=== PATIENT | male | born 1970 | race Caucasian/White ===

== ENCOUNTER 2018-03-06 14:54 | Inpatient (IN) | payer OTHER ==
[~2018-03-06] VITALS: Ht 190.5 cm; Wt 131.5 kg
[2018-03-06 16:26] LABS: ABSOLUTE BASOPHIL COUNT 0 /CUMM (0.0-0.2); ABSOLUTE EOSINOPHIL COUNT 0 /CUMM (0.0-0.7); ABSOLUTE GRANULOCYTE CT 5.5 /CUMM (1.4-6.5); ABSOLUTE LYMPH COUNT 0.8 /CUMM (1.2-3.4); ABSOLUTE MONOCYTE COUNT 0.1 /CUMM (0.10-0.60); BASOPHIL % 0.3 % (0.0-2.0); EOSINOPHIL % 0.3 % (0-5); MEAN CORPUSCULAR HGB 29.3 PG (27.0-31.0); MEAN CORPUSCULAR HGB CONC 33.9 G/DL (33.0-37.0); MEAN CORPUSCULAR VOLUME 86.4 FL (80.0-94.0); PLATELET COUNT 159 /CUMM (130-400); RBC DISTRIBUTION WIDTH 13.7 % (11.5-14.5); RED BLOOD CELL CT 5.09 /CUMM (4.70-6.10); WHITE BLOOD CELL COUNT 6.5 /CUMM (4.8-10.8)
[2018-03-06 16:28] LABS: GRANULOCYTE % 84.9 % (42.2-75.2)
--- NOTE | 2018-03-06 19:06 | ED SKIN/ALLERGY COMPLAINT ---
History of Present Illness General Chief Complaint: Skin Rash/ Abcess Stated Complaint: SIB ROSA MARIA. BART FOR CELLULITIS Source: patient Exam Limitations: no limitations Vital Signs & Intake/Output Vital Signs & Intake/Output Vital Signs Date Time Temp Pulse Resp B/P B/P Pulse O2 O2 Flow FiO2 Mean Ox Delivery Rate 03/06 1516 97.9 78 17 128/86 97 Room Air Allergies Coded Allergies: cat dander (UNKNOWN REACTION TO CATS 03/06/18) lactose (INTOLERANT 03/06/18) Triage Note: PT REFERRED TO ED BY MD ARRIAGA FOR WORSENING LLE CELLULITIS, STARTED ON PO AUGMENTIN YESTERDAY. STATES REDNESS HAS EXTENDED BEYOND THE LINES DRAWN AT OFFICE YESTERDAY Triage Nurses Notes Reviewed? yes Onset: Abrupt Duration: day(s): Timing: recent history Severity: mild, moderate Location: extremities No Modifying Factors: none HPI: A 47-year-old male comes into the emergency room for further evaluation of redness to left lower leg that is spreading. Patient reports symptoms started a few days ago and has spread significantly since. She's been on Augmentin for the last 24 hours. He denies any fever chills vomiting. Nothing seems to make the symptoms better. Comes in for further evaluation. (Jameel BAEZ,Tom) Reconcile Medications Allopurinol 300 MG TABLET 1 TAB PO DAILY GOUT (Reported) Amoxicillin/Clavulanate Potass (Amox-Clav 875-125 MG Tablet) 875 MG-125 MG TABLET 1 TAB PO BID ABX (Reported) Aspirin (Aspirin*) 81 MG TAB.CHEW 1 TAB PO DAILY HEART/BLOOD (Reported) Atenolol 50 MG TABLET 1 TAB PO DAILY BP (Reported) Cholecalciferol (Vitamin D3) (Vitamin D) (Unknown Strength) TABLET (Unknown Dose) PO DAILY SUPPLEMENT (Reported) Fenofibrate Nanocrystallized (Fenofibrate) 48 MG TABLET 1 TAB PO DAILY CHOLESTEROL/TRIGLYCERIDES (Reported) Multiple Vitamin (Multivitamins) 1 EACH TABLET 1 TAB PO DAILY SUPPLEMENT ( Reported) Omeprazole 20 MG CAPSULE. 1 CAP PO MONWEDFRISAT GI (Reported) (Tommy WILL,Remberto) Past History Travel History Traveled to [place] past 21 day No Medical History Any Pertinent Medical History? none History of MRSA: No History of VRE: No History of CDIFF: No Tetanus Vaccine: 08/29/12 Surgical History Surgical History: non-contributory Psychosocial History Who do you live with Spouse Services at Home None What is your primary language Libyan Tobacco Use: Never used ETOH Use: denies use Family History Family History, If Any: No Known Family History. Hx Contributory? No (Tom Russ) Review of Systems Review of Systems Constitutional: Reports: no symptoms. EENTM: Reports: no symptoms. Respiratory: Reports: no symptoms. Cardiovascular: Reports: no symptoms. GI: Reports: no symptoms. Genitourinary: Reports: no symptoms. Musculoskeletal: Reports: no symptoms. Skin: Reports: see HPI. Neurological/Psychological: Reports: no symptoms. Hematologic/Endocrine: Reports: no symptoms. Immunologic/Allergic: Reports: no symptoms. All Other Systems: Reviewed and Negative (Tom Russ) Physical Exam Physical Exam General Appearance: well developed/nourished, mild distress Head: atraumatic Eyes: Bilateral: normal appearance. Ears, Nose, Throat: normal ENT inspection, hearing grossly normal Neck: normal inspection Respiratory: no respiratory distress Back: normal inspection Extremities: erythema to left lower leg, below the knee extending down to the foot, well demarcated borders, warm to touch, no purulent drainage, Neurologic/Psych: awake, alert, oriented x 3, normal mood/affect Skin: intact, rash Skin Problem Location: lower extremities (Tom Russ) Progress Differential Diagnosis: abscess/cellulitis, allergic reaction, anaphylaxis, angioedema, asthma, contact dermatitis Plan of Care: Orders Procedure Date/time Status Regular Diet 03/07 B Active Patient Data 03/06 1926 Active OXYGEN SETUP (GEN) 03/06 1907 Active Saline Lock 03/06 1907 Active Admit to inpatient 03/06 1907 Active Vital Signs 03/06 1907 Active Activity/Ambulation 03/06 1907 Active Code Status 03/06 1907 Active BLOOD CULTURE 03/06 1515 Active WESTERGREN SED RATE 03/06 1515 Complete C-REACTIVE PROTEIN 03/06 1515 Complete COMPREHENSIVE METABOLIC PANEL 03/06 1515 Complete CBC WITHOUT DIFFERENTIAL 03/06 1515 Complete Laboratory Tests 03/06/18 1603: Anion Gap 14, Estimated GFR > 60, BUN/Creatinine Ratio 12.0, Glucose 117 H, Calcium 9.2, Total Bilirubin 0.7, AST 232 H, ALT 267 H, Alkaline Phosphatase 75, C-Reactive Prot, Quant 7.7 H, Total Protein 7.6, Albumin 4.4, Globulin 3.2, Albumin/Globulin Ratio 1.4, CBC w Diff NO MAN DIFF REQ, RBC 5.09, MCV 86.4, MCH 29.3, MCHC 33.9, RDW 13.7, MPV 8.0, Gran % 84.9 H, Lymphocytes % 12.5 L, Monocytes % 2.0, Eosinophils % 0.3, Basophils % 0.3, Absolute Granulocytes 5.5, Absolute Lymphocytes 0.8 L, Absolute Monocytes 0.1, Absolute Eosinophils 0, Absolute Basophils 0, ESR Westergren 22 H Microbiology 03/06 1632 BLOOD: Blood Culture - RECD 03/06 1603 BLOOD: Blood Culture - RECD (Tom Russ) Departure Departure Disposition: STILL A PATIENT Condition: Stable Clinical Impression Primary Impression: Cellulitis of left lower leg Referrals: Roxy WILL,Kaelyn Brumfield (PCP/Family) Departure Forms: Customer Survey General Discharge Information Admission Note Spoke With: Giacomo Dietrich MD Documentation of Exam: Documentation of any treatments & extenuating circumstances including Concerns Regarding Discharge (functional status, medication knowledge or non-compliance, living conditions, etc.) that warrant an admission rather than observation: Patient will require IV antibiotics. Failed outpatient treatment with oral antibiotics. Cellulitis spreading. Medically not safe for discharge. (Tom Russ) PA/KEELER POLYGRAPH OPERATOR Co-Sign Statement Statement: ED Attending supervision documentation- x I saw and evaluated the patient. I have also reviewed all the pertinent lab results and diagnostic results. I agree with the findings and the plan of care as documented in the PA's/KEELER POLYGRAPH OPERATOR's documentation. Worsening LLE cellulitis despite augmentin [] I have reviewed the ED Record and agree with the PA's/KEELER POLYGRAPH OPERATOR's documentation. [] Additions or exceptions (if any) to the PAs/KEELER POLYGRAPH OPERATOR's note and plan are summarized below: [] (Remberto Sanders MD)
[2018-03-06] MEDS ORDERED: AMOX-CLAV 875-1 EACH PO (19:24)
[2018-03-06] MEDS ORDERED: OMEPRAZOLE20 M2 PO (19:25)
[2018-03-06] MEDS ORDERED: FENOFIBRATE48 M1 PO (19:25)
[2018-03-06] MEDS ORDERED: ASPIRIN81 M4 PO (19:25)
[2018-03-06] MEDS ORDERED: ATENOLOL50 M1 PO (19:25)
[2018-03-06] MEDS ORDERED: ALLOPURINOL300 M1 PO (19:25)
[2018-03-06] MEDS ORDERED: MULTIVITAMINS1 EAC9 PO (19:26)
[2018-03-06] MEDS ORDERED: VITAMIN D1000 UNIT PO (19:26)
--- NOTE | 2018-03-06 20:09 | History & Physical ---
Trina Cordon 03/06/182007: General Information and HPI MD Statement: I have seen and personally examined SUSAN JESUS and documented this H&P. The patient is a 47 year old M who presented with a patient stated chief complaint of []. Source of Information: patient History of Present Illness: 47 yo gentleman with PMH significant for gout, psoriatic arthritis and hypertension presents to the ED with worsening redness amd swelling in his left leg. The symptoms started on Sunday when he was driving home from work and noticed his left leg tensing up. He started having chills Sunday night but did not document any fever. He was being treated as an outpatient by and came in today with the pain and the redness spreading down his foot as well as up this thigh. The patient went camping a week ago, although he cannot recall any significant trauma or tickbites during that trip. His reports that he can recall that he bumped his leg sometime last week but they did not notice any cracks or cuts. He had a similar episode around last year for which he was admitted to the hospital and another episode during the Winter which resolved with oral antibiotics. The patient complains of a headache since Sunday which has been gradually improving and an intermittent sharp pain in his left ear. Allergies/Medications Allergies: Coded Allergies: cat dander (UNKNOWN REACTION TO CATS 03/06/18) lactose (INTOLERANT 03/06/18) Home Med list Allopurinol 300 MG TABLET 1 TAB PO DAILY GOUT (Reported) Amoxicillin/Clavulanate Potass (Amox-Clav 875-125 MG Tablet) 875 MG-125 MG TABLET 1 TAB PO BID ABX (Reported) Aspirin (Aspirin*) 81 MG TAB.CHEW 1 TAB PO DAILY HEART/BLOOD (Reported) Atenolol 50 MG TABLET 1 TAB PO DAILY BP (Reported) Cholecalciferol (Vitamin D3) (Vitamin D) (Unknown Strength) TABLET (Unknown Dose) PO DAILY SUPPLEMENT (Reported) Fenofibrate Nanocrystallized (Fenofibrate) 48 MG TABLET 1 TAB PO DAILY CHOLESTEROL/TRIGLYCERIDES (Reported) Multiple Vitamin (Multivitamins) 1 EACH TABLET 1 TAB PO DAILY SUPPLEMENT ( Reported) Omeprazole 20 MG CAPSULE. 1 CAP PO MONWEDFRISAT GI (Reported) Past History Travel History Traveled to [place] past 21 day No Medical History Musculoskeletal: gout, psoariatic arthritis History of MRSA: No History of VRE: No History of CDIFF: No Tetanus Vaccine: 08/29/12 Surgical History Surgical History: non-contributory Past Family/Social History Family History Relations & Conditions if any No Known Family History. Psychosocial History Services at Home: None ETOH Use: denies use Review of Systems Review of Systems Constitutional: Reports: chills. Denies: fever, malaise, weakness. EENTM: Reports: no symptoms, ear pain. Cardiovascular: Reports: edema. Denies: chest pain. Respiratory: Reports: no symptoms. GI: Reports: no symptoms. Genitourinary: Reports: no symptoms. Musculoskeletal: Reports: gout. Skin: Reports: erythema, lesions, lymphangitis. Neurological/Psychological: Reports: no symptoms. Hematologic/Endocrine: Reports: no symptoms. Exam & Diagnostic Data Last 24 Hrs of Vital Signs/I&O Vital Signs Date Time Temp Pulse Resp B/P B/P Pulse O2 O2 Flow FiO2 Mean Ox Delivery Rate 03/06 2137 99.2 63 18 116/70 96 03/06 2034 98.6 63 18 116/60 96 03/06 1516 97.9 78 17 128/86 97 Room Air Intake & Output 03/06 1600 03/06 0800 03/06 0000 Intake Total Output Total Balance Patient 290 lb Weight Weight Reported by Patient Measurement Method Physical Exam General Appearance Alert, Oriented X3, Cooperative, No Acute Distress Skin Diffuse erythematous cellulitis on the left leg spreading down to the foot. Erythema progressively going up the medial thigh, with an isolated red patch in the groin Skin Temp/Moisture Exam: Warm/Dry Sepsis Skin Exam (color): Normal for Ethnicity HEENT Atraumatic, PERRLA Neck Supple Lymphatic Left Inguinal LAP +ve Cardiovascular Regular Rate, Normal S1, Normal S2 Lungs Clear to Auscultation Abdomen Normal Bowel Sounds, Soft, No Tenderness Neurological Strength at 5/5 X4 Ext Assessment/Plan Assessment: This 47 yo gentleman comes in with diffuse erthema of his left leg which is rapidly spreading down his foot and up his thigh. On examination, his has diffuse erythema over his legs and feet; it is spreading up her thigh, with an isolated patch of erythema in his groin on the left side. There is significant inguinal lympadenopathy on the left side. It is notable that the patient has had a similar episode of cellultis on Labour Day last year for which he was admitted and given iv antibiotics, alongwith another episode in Winter last year which resolved with oral antibiotics. Her CRP is 7.7. Rest of the labs of the patient are unremarkable except for asymptomatic transamnitis with AST: 232 ALT:267. PLAN: 1.Admit the patient to floor 2.Start IV Unasyn 3.Start Clindamycin 600mg 4. We marked the area with active cellultis and will continue to monitor. DVT prophy;axis: s/c Lovenox Code status: Full code As Ranked By This Provider Problem List: 1. Cellulitis of left lower leg 2. HTN (hypertension) Core Measures/Misc (04/29) Acute Coronary Syndrome ACS Diagnosis: No Congestive Heart Failure Congestive Heart Failure Diagnosis No Cerebrovascular Accident CVA/TIA Diagnosis: No VTE (View Protocol) VTE Risk Factors Age>40 No Mechanical VTE Prophylaxis d/t N/A MechProphylax Ordered No VTE Pharm Prophylaxis d/t NA PharmProphylax ordered Sepsis (View protocol) Sepsis Present: No If YES complete Sepsis Event Note If YES complete Sepsis Event Note Stewart Patel 03/06/18 2318: Core Measures/Misc (04/29) Sepsis (View protocol) If YES complete Sepsis Event Note If YES complete Sepsis Event Note Resident Review Statement Resident Statement: examined this patient, discussed with design intern, agreed with design intern, discussed with family Other Findings: 47-year-old gentleman with past medical history significant for recurrent cellulitis, history of group A strep septicemia, and NAFLD, psoriatic arthritis, hypertension coming in with evaluation for worsening lower left extremity redness and swelling. Patient saw Eli Cheek APRN on Sunday and was started on Augmentin 2 days ago however there was no resolution of symptoms he noticed progression of the erythema and swelling involving the foot lower leg and streaking up to his thigh with some heaviness in his inguinal area. Stated that he felt overall unwell however . He gave a history of camping 2 weeks ago. States that he felt like something maybe he might have scratched or bumped his left leg. He also reports going swimming in a pool. Denied fever, chills, sore throat, chest pain, shortness of breath, abdominal pain, tick bites. Vitals in ED afebrile rest of vitals are stable. Examination was significant for erythema , swelling in the region of his lower left extremity extending into his foot with streaking noted into the thigh. Palpable left inguinal lymph nodes. No crepitations noted. Genitalia examination unremarkable. Rest of examination also unremarkable. Labs significant for mildly elevated transaminitis. Problem list: Outpatient failure of lower left extremity cellulitis with lymphangitis. Transaminitis 2/2 to NAFLD Plan Admit to general medicine floor, vitals per protocol Gentle IV fluids, elevated affected limb Derm consult considering psoriatic arthritis We will start IV clindamycin along with IV unasyn DVT prophylaxis subcu Lovenox Continue rest of his home medications Pain control with IV ketorolac and morphine Full code Giacomo Dietrich MD 03/07/18 0137: Core Measures/Misc (04/29) Sepsis (View protocol) If YES complete Sepsis Event Note If YES complete Sepsis Event Note Attending MD Review Statement Attending Statement Attending MD Statement: examined this patient, discuss w/resident/PA/STOCKING AND BOX SHOP SUPERVISOR, agreed w/resident/PA/STOCKING AND BOX SHOP SUPERVISOR, reviewed EMR data (avail) Attending Assessment/Plan: 47M PMH gout, psoriatic arthritis and HTN presenting with 3-4 days of LLE erythema, warmth, and discomfort, started on Augmentin yesterday, with spreading of erythema now involving left lower leg, foot, and streaking up thigh. Patient feels ill and weak. He denies fever, chills, headache, sore throat, chest pain, SOB, diarrhea, dysuria. Afebrile, stable vitals, normal WBC and renal function, mildly elevated LFTs. 1. LLE cellulitis 2. Failure of outpatient therapy Plan - Admit to general medicine - Start IV Clindamycin - Dermatology consult given psoriatic arthritis - Leg elevation - Continue home medications - DVT PPx
[2018-03-06 21:37] VITALS: BP 116/70
[2018-03-07 00:07] VITALS: BP 110/74
--- NOTE | 2018-03-07 01:38 | Admission Certification ---
Admission Certification Certification Statement - As attending physician, I certify that at the time of - admission, based on clinical presentation, severity of - symptoms, need for further diagnostic testing and - therapeutic interventions, and risk of adverse outcomes - without in-hospital treatment, in my clinical assessment, - this patient requires an acute hospital stay for a minimum - of two nights or longer. I have also considered psychsocial - factors such as support system, advanced age, financial - issues, cognitive issues, and failed out-patient treatments, - past re-admission history, safety of patient, and lack of - compliance as applicable. Specific rationale supporting this admission is: Rapidly spreading LLE cellulitis failing outpatient therapy
[2018-03-07 04:04] VITALS: BP 118/70
--- NOTE | 2018-03-07 08:12 | PN- Housestaff ---
See Addendum Subjective Follow-up For: LLE cellulitis with lymphadenopathy Complaints: no complaints Subjective: Patient reports no acute events overnight. He states the redness to his LLE has not increased. He has little pain and actually describes it more as a pressure. Denies fever, chills, n/v/d, chest pain, SOB. Of note: he has had 3 cellulitic infections to this LLE in the past year: 2016 Day (hospitalized in [facility]) then again this Spring (treated outpatient by PCP with abx) and now current infection. Lives at home with 2 cats and one dog, but denies any scratches or trauma to that leg. Review of Systems Constitutional: Reports: see HPI. Objective Last 24 Hrs of Vital Signs/I&O Vital Signs Date Time Temp Pulse Resp B/P B/P Pulse O2 O2 Flow FiO2 Mean Ox Delivery Rate 03/07 0655 98.0 03/07 0404 98.4 62 20 118/70 95 03/07 0007 98.4 62 20 110/74 96 03/06 2137 99.2 63 18 116/70 96 03/06 2034 98.6 63 18 116/60 96 03/06 1516 97.9 78 17 128/86 97 Room Air Intake & Output 03/07 1600 03/07 0800 03/07 0000 Intake Total 1000 200 Output Total Balance 1000 200 Intake, IV 700 100 Intake, Oral 300 100 Number 0 Bowel Movements Patient 290 lb Weight Physical Exam General Appearance: Alert, Oriented X3, Cooperative, No Acute Distress Skin: LLE with erythema, edema, and warmth. Non tender. Erythema extends to dorsum of left foot. Motor and sensory intact. Erythema does not cross line that was drawn on admission. Left groin lymphadenopathy and redness Skin Temp/Moisture Exam: Warm/Dry HEENT: Atraumatic, PERRLA Neck: Supple Cardiovascular: Regular Rate, Normal S1, Normal S2, No Murmurs Lungs: Clear to Auscultation Abdomen: Normal Bowel Sounds, Soft, No Tenderness Extremities: see skin exam Assessment/Plan Assessment: 47 yo male comes in with diffuse erthema of his left leg which is rapidly spreading down his foot and up his thigh. On examination, his has diffuse erythema over his legs and feet; it is spreading up his thigh, with an isolated patch of erythema in his groin on the left side. There is significant inguinal lympadenopathy on the left side. It is notable that the patient has had a similar episode of cellultis on last year for which he was admitted and given iv antibiotics, alongwith another episode in Winter last year which resolved with oral antibiotics. Her CRP is 7.7. Rest of the labs of the patient are unremarkable except for asymptomatic transamnitis with AST: 232 ALT:267. He is admitted to the general medicine service for treatment of the following: Problem List: 1. LLE cellulitis with inguinal lymphadenopathy 2. Tranaminitis # LLE cellulitis with inguinal lymphadenopathy -IV Unasyn: Day 2 -Started on Clindamycin overnight and discontinued on 03/07 -tracing of erythema and continued monitoring for spread #Transaminitis-has know fatty liver dz seen on CTabd in 2013 -will monitor DVT prophy;axis: ALPS RLE/ Lovenox/ambulation Code status: Full code Problem List: 1. Cellulitis of left lower leg Pain Ratin Pain Location: none Pain Goal: Remain pain free Pain Plan: see a/p Tomorrow's Labs & Rationales: LFTs
[2018-03-07 14:14] VITALS: BP 130/70
[2018-03-07 22:04] VITALS: BP 128/62
[2018-03-08 07:01] VITALS: BP 130/68
--- NOTE | 2018-03-08 08:39 | PN- Housestaff ---
See Addendum Subjective Follow-up For: LLE cellulitits with inguinal lymphadenopathy Complaints: no complaints Subjective: Patient states he rested well overnight and has no complaints. He does not have any pain associated with is LLE. He does endorse slight tenderness felt in the left groin at site of lymphadenopathy. Denies fever, chills, n/v/d, chest pain, SOB. Review of Systems Constitutional: Reports: see HPI. Objective Last 24 Hrs of Vital Signs/I&O Vital Signs Date Time Temp Pulse Resp B/P B/P Pulse O2 O2 Flow FiO2 Mean Ox Delivery Rate 03/08 0701 98.7 73 20 130/68 95 Room Air 03/07 2204 98.6 77 18 128/62 96 Room Air 03/07 1414 98.6 81 20 130/70 95 Room Air Intake & Output 03/08 1600 03/08 0800 03/08 0000 Intake Total Output Total Balance Number 0 Bowel Movements Physical Exam General Appearance: Alert, Oriented X3, Cooperative, No Acute Distress Skin: LLE erythema, warmth, non tender to palpation. Erythema and edema extends to include left dorsum of foot. left inguinal region with erythema and tender to palp Skin Temp/Moisture Exam: Warm/Dry HEENT: Atraumatic, PERRLA Neck: Supple Cardiovascular: Regular Rate, Normal S1, Normal S2, No Murmurs Lungs: Clear to Auscultation Abdomen: Normal Bowel Sounds, Soft, No Tenderness Extremities: see skin exam Assessment/Plan Assessment: 47 yo male comes in with diffuse erthema of his left leg which is rapidly spreading down his foot and up his thigh. On examination, his has diffuse erythema over his legs and feet; it is spreading up his thigh, with an isolated patch of erythema in his groin on the left side. There is significant inguinal lympadenopathy on the left side. It is notable that the patient has had a similar episode of cellultis on Day last year for which he was admitted and given iv antibiotics, alongwith another episode in Winter last year which resolved with oral antibiotics. Her CRP is 7.7. Rest of the labs of the patient are unremarkable except for asymptomatic transamnitis with AST: 232 ALT:267. He is admitted to the general medicine service for treatment of the following: Problem List: 1. LLE cellulitis with inguinal lymphadenopathy 2. Tranaminitis # LLE cellulitis with inguinal lymphadenopathy -IV Unasyn: Day 3 -Started on Clindamycin overnight and discontinued on 03/07 -tracing of erythema and continued monitoring for spread -Change to PO Augment for a total of 10day treatment course #Transaminitis-has know fatty liver dz seen on CTabd in 2013 -will monitor DVT prophy;axis: ALPS RLE/ Lovenox/ambulation Code status: Full code Dispo: today with PO augmentin for 10day total treatment course. Follow up with PCP outpatient. Will give note for work with Return to Work on March 14, 2018. Patient instructed to elevate LLE above level of heart while at rest. Instructed to use moisturizing lotion to keep skin from drying. Problem List: 1. Cellulitis of left lower leg Pain Ratin Pain Location: none Pain Goal: Remain pain free Pain Plan: see a/p Tomorrow's Labs & Rationales: none
[2018-03-08] MEDS ORDERED: AUGMENTIN 875-1 EACH PO ×2 (09:34→10:43)
--- NOTE | 2018-03-08 09:38 | Patient Discharge Instructions ---
Discharge Instructions General Discharge Information You were seen/treated for: Left lower extremity cellulitis You had these procedures: none Watch for these problems: fever, increasing redness to upper leg, chills, nausea, vomiting, chest pain, shortness of breath, increasing pain in leg, numbness or tingling to left leg Special Instructions: Elevate left leg above the level of your heart while at rest. Take full course of antibiotics as prescribed Follow up with your PCP Use moisturizing lotion as discussed to keep your skin from drying. Diet Continue normal diet: Yes Recommended Diet: Low Salt Acute Coronary Syndrome Inclusion Criteria At DC or during hospital stay patient has or had the following: ACS DIAGNOSIS No Discharge Core Measures Meds if any: Prescribed or Continued at Discharge ROSMERY/ARB if EF <40% No Meds if any: NOT Prescribed or Continued at Discharge Congestive Heart Failure Inclusion Criteria At DC or during hospital stay patient has or had the following: CHF DIAGNOSIS No Discharge Core Measures Meds if any: Prescribed or Continued at Discharge Meds if any: NOT Prescribed or Continued at Discharge Cerebrovascular accident Inclusion Criteria At DC or during hospital stay patient has or had the following: CVA/TIA Diagnosis No Discharge Core Measures Meds if any: Prescribed or Continued at Discharge Meds if any: NOT Prescribed or Continued at Discharge Venous thromboembolism Inclusion Criteria VTE Diagnosis No VTE Type NONE VTE Confirmed by (Test) NONE Discharge Core Measures - Per Current guidelines, there needs to be overlap - treatment for the first 5 days of Warfarin therapy. - If discharged on Warfarin prior to 5 days of - overlap therapy, the patient will need to be - assessed for post discharge needs including - *Post discharge parental anticoagulation - *Warfarin and/or parental anticoagulation education - *Follow up date to check INR post discharge At least 5 days overlap therapy as Inpatient No Meds if any: Prescribed or Continued at Discharge Note: Overlap Therapy is Warfarin and Anticoagulant Meds if any: NOT Prescribed or Continued at Discharge
--- NOTE | 2018-03-08 10:52 | Discharge Summary ---
Visit Information Visit Dates Admission Date: 03/06/18 Discharge Date: 03/08/18 Hospital Course Course Attending Physician: Jossue Serra MD Primary Care Physician: Roxy WILL,Kaelyn Brumfield Hospital Course: Mr Smith is a 47 yo male with PMH HTN, gout, psoriatic arthritis presenting with diffuse erthema of his left leg which is rapidly spreading down his foot and up his thigh for the past 3-4 days. On examination, his has diffuse erythema over his legs and feet; it is spreading up his thigh, with an isolated patch of erythema in his groin on the left side. There is significant inguinal lympadenopathy on the left side. It is notable that the patient has had a similar episode of cellultis on last year for which he was admitted and given iv antibiotics, alongwith another episode in Winter last year which resolved with oral antibiotics. Her CRP is 7.7. Rest of the labs of the patient are unremarkable except for asymptomatic transamnitis with AST: 232 ALT:267. He is admitted to the general medicine service for treatment of the following: Problem List: 1. LLE cellulitis with inguinal lymphadenopathy 2. Tranaminitis # LLE cellulitis with inguinal lymphadenopathy -IV Unasyn: Day 3 -Started on Clindamycin overnight and discontinued on 03/07 -tracing of erythema and continued monitoring for spread -Change to PO Augment for a total of 10day treatment course #Transaminitis-has know fatty liver dz seen on CTabd in 2013 -was monitored while inpatient Dispo: March 08, 2018 with PO augmentin for 10day total treatment course. Follow up with PCP outpatient. Will give note for work with Return to Work on March. Patient instructed to elevate LLE above level of heart while at rest. Instructed to use moisturizing lotion to keep skin from drying. Allergies: Coded Allergies: cat dander (UNKNOWN REACTION TO CATS 03/06/18) lactose (INTOLERANT 03/06/18) Disposition Summary Disposition Principal Diagnosis: LLE cellulitis with left inguinal lymphadenopathy Additional Diagnosis: none Discharge Disposition: home or self care Discharge Instructions General Discharge Information Code Status: Full Code Patient's Diet: Low Salt Diet Patient's Activity: as tolerated Follow-Up Instructions/Appts: Please take your antibiotic, Augmentin, twice a day for a total of 8 days Please follow up with your primary care doctor within one week of discharge Medications at Discharge Discharge Medications: Stop taking the following medications: Amoxicillin/Clavulanate Potass (Amox-Clav 875-125 MG Tablet) 875 MG-125 MG TABLET ORAL TWICE DAILY Qty = 14 Continue taking these medications: Allopurinol (Allopurinol) 300 MG TABLET 1 Tablet ORAL DAILY Qty = 90 Comments: Last Taken:03/08/18 Time:0816 Atenolol (Atenolol) 50 MG TABLET 1 Tablet ORAL DAILY Qty = 90 Comments: NOT GIVEN IN HOSPITAL Omeprazole (Omeprazole) 20 MG CAPSULE.DR 1 Capsule ORAL MONWEDFRISAT Qty = 90 Comments: Last Taken:03/08/18 Time:0816 Fenofibrate Nanocrystallized (Fenofibrate) 48 MG TABLET 1 Tablet ORAL DAILY Qty = 90 Comments: Last Taken:03/08/18 Time:0816 Aspirin (Aspirin*) 81 MG TAB.CHEW 1 Tablet ORAL DAILY Comments: Last Taken:03/08/18 Time: 0816 Multiple Vitamin (Multivitamins) 1 EACH TABLET 1 Tablet ORAL DAILY Comments: NOT GIVEN IN HOSPITAL Cholecalciferol (Vitamin D3) (Vitamin D) (Unknown Strength) TABLET Unknown Dose ORAL DAILY Comments: NOT GIVEN IN HOSPITAL Start taking the following new medications: Amoxicillin/Potassium Clav (Augmentin 875-125 Tablet) 875 MG-125 MG TABLET 1 Tablet ORAL TWICE DAILY Qty = 5 No Refills Comments: NOT GIVEN IN HOSPITAL Copies To: Roxy WILL,Kaelyn Brumfield Attending MD Review Statement Documenting Attending: Jossue Serra MD Other Findings: The patient was seen and agree with the above summary of care and plan upon discharge. Not clear etiology of recurrent cellulitis- may be related to psoriasis (no psoriatic lesions seen on LLE).
== END 2018-03-08 12:50 | DRG 603 ==
LOC: ERH 14:54 → ERHI 19:07 → 2NA 19:07 → ENRESERV 19:56 → ENTRNSPT 20:39 → EDTRNSPTSTS 21:00 → EDTRNSPT 21:00 → 2NA 21:02 → CMPTRNSPT 21:16 → 2NA 03-07 11:15 → ENPENDDIS 03-08 10:49 → ENTRNSPT 03-08 12:30 → EDTRNSPT 03-08 12:43 → EDTRNSPTSTS 03-08 12:43 → 2NA 03-08 12:50 → CMPTRNSPT 03-08 12:58
PROVIDERS: Physician Assistant Medical
DX: L03.116 Cellulitis of left lower limb (principal); M10.9 Gout, unspecified; L40.50 Arthropathic psoriasis, unspecified; I10 Essential (primary) hypertension; R74.0 Nonspecific elevation of levels of transaminase and lactic acid dehydrogenase [LDH]; R59.0 Localized enlarged lymph nodes
CPT/HCPCS: 2NASP; 36592; 87040; 96374; J1650; J3490